=== PATIENT | male | born 1990 | race Caucasian/White ===

== ENCOUNTER 2020-04-09 19:21 | Emergency (ER) | payer OTHER, SELFPAY ==
--- NOTE | ~2020-04-09 | CT_ITS ---
EXAMINATION: CT facial bones wo con EXAM DATE: 04/09/2020 20:06 INDICATION: Facial injury. Facial pain. TECHNIQUE: Spiral CT of the facial bones was acquired in the axial plane without contrast. Coronal reformatted images were also reviewed. The dose-length product (DLP) for this examination was 293.82 mGy-cm. The exposure was tailored according to patient size, and iterative reconstruction (ASIR) wa s used as additional dose reduction technique. There is no prior study for comparison. FINDINGS: There is acute nondisplaced nasal septal fracture. There are acute bilateral minimally rig htward displaced nasal bone fractures. The orbits and sinuses are intact. The orbits, globes and ext raocular muscles are unremarkable. The visualized sinuses and mastoid air cells are well aerated. There is right cheek, brow swelling. IMPRESSION: 1. Acute minimally displaced nasal bone fractures bilaterally. 2. Acute nondisplaced nasal septal fracture. 3. Right-sided facial swelling. Reviewed, dictated and finalized at location [facility]
[2020-04-09 19:23] VITALS: BP 105/38; PULSE 131; RESP 18; TEMP 36.3; O2SAT 97
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
== END 2020-04-09 21:34 | disposition home or self-care (01) ==
LOC: ANHED 20:42
PROVIDERS: Emergency Provider Emergency Medicine; PCP Nurse Practitioner Family
DX: S02.2XXA Fracture of nasal bones, initial encounter for closed fracture (principal); Y04.2XXA Assault by strike against or bumped into by another person, initial encounter
CPT/HCPCS: 70486; 99284